=== PATIENT | female | born 1995 | race Caucasian/White ===

== ENCOUNTER 2017-09-26 15:00 | Emergency (ER) | payer OTHER ==
[2017-09-26 15:50] LABS: ADD MAN DIFF? NO
[2017-09-26 15:55] LABS: WHITE BLOOD COUNT 14.5 10^3/ul (4.8-10.8)
[2017-09-26 15:55] LABS: BASOPHIL # 0.1 10^3/ul (0.0-0.1); BASOPHILS % 0.3 % (0.0-2.0); EOSINOPHILS # 0.1 10^3/ul (0.0-0.5); EOSINOPHILS % 0.5 % (0.0-7.0); HEMATOCRIT 41.7 % (37.0-47.0); HEMOGLOBIN 14.1 g/dl (12.0-16.0); LYMPHOCYTES # 4.2 10^3/ul (0.8-2.9); LYMPHOCYTES % 29.3 % (15.0-51.0); MEAN CORPUSCULAR HGB CONC 33.8 g/dl (32.0-37.0); MEAN CORPUSCULAR VOLUME 85.8 fl (82.0-101.0); MEAN PLATELET VOLUME 12.2 fl (7.4-10.4); MONOCYTE # 0.7 10^3/ul (0.3-0.9); MONOCYTES % 4.8 % (0.0-11.0); NEUTROPHIL # 9.3 10^3/ul (1.6-7.5); NEUTROPHILS % 64.6 % (39.0-77.0); PLATELET COUNT 218 10^3/UL (140-415); RED BLOOD COUNT 4.86 10^6/ul (4.20-5.40); RED CELL DISTRIBUTION WIDTH 13.3 % (11.5-14.5)
[2017-09-26 16:06] LABS: ADD UMIC YES; UR ASCORBIC ACID NEGATIVE (NEGATIVE); UR BACTERIA FEW /HPF (NONE SEEN); UR BILIRUBIN (Dip) NEGATIVE (NEGATIVE); UR BLOOD (Dip) 3+ mg/dL (NEGATIVE); UR CLARITY SLIGHTLY CLOUDY (CLEAR); UR COLOR YELLOW (YELLOW); UR GLUCOSE (Dip) NEGATIVE (NEGATIVE); UR KETONES (Dip) TRACE mg/dL (NEGATIVE); UR LEUKOCYTE ESTERASE (Dip) TRACE Leu/ul (NEGATIVE); UR MUCUS FEW /HPF (NONE SEEN); UR NITRITE (Dip) NEGATIVE (NEGATIVE); UR RBC 1 /HPF (0-5); UR SPECIFIC GRAVITY (Dip) 1.019 (1.003-1.030); UR SQUAMOUS EPITHELIAL CELL FEW /HPF (FEW); UR TOTAL PROTEIN (Dip) NEGATIVE (NEGATIVE); UR UROBILINOGEN (Dip) NEGATIVE (NEGATIVE); UR WBC 4 /HPF (0-5)
== END 2017-09-26 17:11 | disposition home or self-care (01) ==
LOC: FTE 15:00
DX: O20.9 Hemorrhage in early pregnancy, unspecified (principal); O99.511 Diseases of the respiratory system complicating pregnancy, first trimester; J45.909 Unspecified asthma, uncomplicated; Z3A.01 Less than 8 weeks gestation of pregnancy
CPT/HCPCS: 36415; 76801; 76817; 81001; 84702; 85025; 86900; 86901; 99284-25

== ENCOUNTER 2017-09-30 09:59 | Emergency (ER) | payer OTHER ==
[2017-09-30] MEDS ORDERED: LIDOCAINE/MYLANTA 40 ML BTL PO (10:21)
[2017-09-30] MEDS ORDERED: ONDANSETRON (ODT) 4 MG TAB ODT (10:21)
[2017-09-30] MEDS ORDERED: BELLADONNA/PHENOBARBITAL TAB PO (10:21)
[2017-09-30] MEDS ORDERED: MECLIZINE 12.5 MG TAB PO (10:30)
[2017-09-30 10:59] LABS: ADD UMIC YES; UR ASCORBIC ACID NEGATIVE (NEGATIVE); UR BILIRUBIN (Dip) NEGATIVE (NEGATIVE); UR BLOOD (Dip) 2+ mg/dL (NEGATIVE); UR CLARITY SLIGHTLY CLOUDY (CLEAR); UR COLOR YELLOW (YELLOW); UR GLUCOSE (Dip) NEGATIVE (NEGATIVE); UR KETONES (Dip) NEGATIVE (NEGATIVE); UR LEUKOCYTE ESTERASE (Dip) 1+ Leu/ul (NEGATIVE); UR NITRITE (Dip) NEGATIVE (NEGATIVE); UR RBC 1 /HPF (0-5); UR SPECIFIC GRAVITY (Dip) 1.016 (1.003-1.030); UR SQUAMOUS EPITHELIAL CELL FEW /HPF (FEW); UR TOTAL PROTEIN (Dip) NEGATIVE (NEGATIVE); UR UROBILINOGEN (Dip) NEGATIVE (NEGATIVE); UR WBC 5 /HPF (0-5)
== END 2017-09-30 11:56 | disposition home or self-care (01) ==
LOC: FTE 09:59
DX: O23.41 Unspecified infection of urinary tract in pregnancy, first trimester (principal); O20.9 Hemorrhage in early pregnancy, unspecified; O99.511 Diseases of the respiratory system complicating pregnancy, first trimester; J45.909 Unspecified asthma, uncomplicated; Z3A.01 Less than 8 weeks gestation of pregnancy
CPT/HCPCS: 81001; 84702; 99283

== ENCOUNTER 2017-10-06 08:32 | Emergency (ER) | payer OTHER ==
[2017-10-06 09:17] LABS: ADD MAN DIFF? NO
[2017-10-06 09:23] LABS: WHITE BLOOD COUNT 12.8 10^3/ul (4.8-10.8)
[2017-10-06 09:23] LABS: BASOPHIL # 0.1 10^3/ul (0.0-0.1); BASOPHILS % 0.4 % (0.0-2.0); EOSINOPHILS # 0.1 10^3/ul (0.0-0.5); EOSINOPHILS % 0.6 % (0.0-7.0); HEMATOCRIT 41.1 % (37.0-47.0); HEMOGLOBIN 14.1 g/dl (12.0-16.0); LYMPHOCYTES # 3.4 10^3/ul (0.8-2.9); LYMPHOCYTES % 26.6 % (15.0-51.0); MEAN CORPUSCULAR HEMOGLOBIN 28.7 pg (29.0-33.0); MEAN CORPUSCULAR HGB CONC 34.3 g/dl (32.0-37.0); MEAN CORPUSCULAR VOLUME 83.7 fl (82.0-101.0); MEAN PLATELET VOLUME 11.8 fl (7.4-10.4); MONOCYTE # 0.6 10^3/ul (0.3-0.9); MONOCYTES % 4.6 % (0.0-11.0); NEUTROPHIL # 8.6 10^3/ul (1.6-7.5); NEUTROPHILS % 67.3 % (39.0-77.0); PLATELET COUNT 215 10^3/UL (140-415); RED BLOOD COUNT 4.91 10^6/ul (4.20-5.40); RED CELL DISTRIBUTION WIDTH 13.2 % (11.5-14.5)
[2017-10-06 09:26] LABS: ADD UMIC YES; UR ASCORBIC ACID NEGATIVE (NEGATIVE); UR BACTERIA FEW /HPF (NONE SEEN); UR BILIRUBIN (Dip) NEGATIVE (NEGATIVE); UR BLOOD (Dip) 3+ mg/dL (NEGATIVE); UR CLARITY SLIGHTLY CLOUDY (CLEAR); UR COLOR YELLOW (YELLOW); UR GLUCOSE (Dip) NEGATIVE (NEGATIVE); UR KETONES (Dip) NEGATIVE (NEGATIVE); UR LEUKOCYTE ESTERASE (Dip) NEGATIVE Leu/ul (NEGATIVE); UR NITRITE (Dip) NEGATIVE (NEGATIVE); UR RBC > 182 /HPF (0-5); UR SPECIFIC GRAVITY (Dip) 1.011 (1.003-1.030); UR SQUAMOUS EPITHELIAL CELL FEW /HPF (FEW); UR TOTAL PROTEIN (Dip) NEGATIVE (NEGATIVE); UR UROBILINOGEN (Dip) NEGATIVE (NEGATIVE); UR WBC 21 /HPF (0-5)
== END 2017-10-06 11:04 | disposition home or self-care (01) ==
LOC: FTE 08:32
DX: O46.8X1 Other antepartum hemorrhage, first trimester (principal); O99.511 Diseases of the respiratory system complicating pregnancy, first trimester; J45.909 Unspecified asthma, uncomplicated; R10.2 Pelvic and perineal pain; Z3A.01 Less than 8 weeks gestation of pregnancy
CPT/HCPCS: 36415; 76801; 81001; 84702; 85025; 86900; 86901; 87086; 99284-25

== ENCOUNTER 2018-04-12 18:24 | Outpatient (CLI) | payer OTHER ==
[2018-04-12 20:06] LABS: ADD MAN DIFF? NO
[2018-04-12 20:08] LABS: BASOPHILS % 0.1 % (0.0-2.0); EOSINOPHILS # 0.1 10^3/ul (0.0-0.5); EOSINOPHILS % 0.8 % (0.0-7.0); HEMATOCRIT 34.9 % (37.0-47.0); HEMOGLOBIN 11.6 g/dl (12.0-16.0); LYMPHOCYTES % 25.1 % (15.0-51.0); MEAN CORPUSCULAR HEMOGLOBIN 28.6 pg (29.0-33.0); MEAN CORPUSCULAR HGB CONC 33.2 g/dl (32.0-37.0); MEAN PLATELET VOLUME 12.7 fl (7.4-10.4); MONOCYTE # 0.8 10^3/ul (0.3-0.9); MONOCYTES % 6.7 % (0.0-11.0); PLATELET COUNT 196 10^3/UL (140-415); RED BLOOD COUNT 4.06 10^6/ul (4.20-5.40); RED CELL DISTRIBUTION WIDTH 12.7 % (11.5-14.5)
[2018-04-12 20:08] LABS: WHITE BLOOD COUNT 11.9 10^3/ul (4.8-10.8)
[2018-04-12 20:27] LABS: ALANINE AMINOTRANSFERASE 25 IU/L (13-69); ALBUMIN 3.4 g/dl (3.3-4.9); ALBUMIN/GLOBULIN RATIO 1.21; ALKALINE PHOSPHATASE 188 IU/L (42-121); ANION GAP 9 (5-13); ASPARTATE AMINO TRANSFERASE 18 IU/L (15-46); BILIRUBIN,INDIRECT 0.3 mg/dl (0-1.1); BILIRUBIN,TOTAL 0.3 mg/dl (0.2-1.3); BLOOD UREA NITROGEN 6 mg/dl (7-20); CALCIUM 9.2 mg/dl (8.4-10.2); CARBON DIOXIDE 23 mmol/L (21-31); CHLORIDE 107 mmol/L (97-110); CREATININE 0.34 mg/dl (0.44-1.00); Estimated GFR > 60 mL/min (>60); GLUCOSE 84 mg/dl (70-220); POTASSIUM 3.9 mmol/L (3.5-5.1); SODIUM 139 mmol/L (135-144); TOTAL PROTEIN 6.2 g/dl (6.1-8.1); URIC ACID 2.7 mg/dl (3.1-7.9)
[2018-04-12 20:29] LABS: INR 0.93; PROTIME 12.6 Sec (11.9-14.9)
[2018-04-12 20:30] LABS: PARTIAL THROMBOPLASTIN TIME 26.6 Sec (23.0-35.0)
[2018-04-12 20:38] LABS: ADD UMIC NO; UR ASCORBIC ACID NEGATIVE (NEGATIVE); UR BILIRUBIN (Dip) NEGATIVE (NEGATIVE); UR BLOOD (Dip) NEGATIVE (NEGATIVE); UR CLARITY CLEAR (CLEAR); UR COLOR STRAW (YELLOW); UR GLUCOSE (Dip) NEGATIVE (NEGATIVE); UR KETONES (Dip) NEGATIVE (NEGATIVE); UR LEUKOCYTE ESTERASE (Dip) NEGATIVE Leu/ul (NEGATIVE); UR NITRITE (Dip) NEGATIVE (NEGATIVE); UR SPECIFIC GRAVITY (Dip) 1.006 (1.003-1.030); UR TOTAL PROTEIN (Dip) NEGATIVE (NEGATIVE); UR UROBILINOGEN (Dip) NEGATIVE (NEGATIVE)
[2018-04-12] MEDS: ACETAMINOPHEN 500 MG TAB PO (20:45)
== END 2018-04-12 21:35 | disposition home or self-care (01) ==
LOC: OBT 18:24 → L-D 18:25 → OBT 21:35
DX: O13.3 Gestational [pregnancy-induced] hypertension without significant proteinuria, third trimester (principal); Z3A.34 34 weeks gestation of pregnancy
CPT/HCPCS: 76818; 80053; 81003; 84560; 85025; 85384; 85610; 85730

== ENCOUNTER 2018-04-24 12:07 | Outpatient (CLI) | payer OTHER ==
[2018-04-24 13:22] LABS: ADD MAN DIFF? NO
[2018-04-24 13:28] LABS: ABNORMAL IP MESSAGE 1; BASOPHILS % 0.2 % (0.0-2.0); EOSINOPHILS # 0.1 10^3/ul (0.0-0.5); EOSINOPHILS % 0.6 % (0.0-7.0); HEMATOCRIT 35.9 % (37.0-47.0); HEMOGLOBIN 11.9 g/dl (12.0-16.0); LYMPHOCYTES # 2.4 10^3/ul (0.8-2.9); LYMPHOCYTES % 24.5 % (15.0-51.0); MEAN CORPUSCULAR HEMOGLOBIN 28.3 pg (29.0-33.0); MEAN CORPUSCULAR HGB CONC 33.1 g/dl (32.0-37.0); MEAN CORPUSCULAR VOLUME 85.5 fl (82.0-101.0); MEAN PLATELET VOLUME 13.3 fl (7.4-10.4); MONOCYTE # 0.7 10^3/ul (0.3-0.9); MONOCYTES % 6.8 % (0.0-11.0); NEUTROPHIL # 6.6 10^3/ul (1.6-7.5); NEUTROPHILS % 67.6 % (39.0-77.0); PLATELET COUNT 178 10^3/UL (140-415); RED CELL DISTRIBUTION WIDTH 13.1 % (11.5-14.5)
[2018-04-24 13:28] LABS: WHITE BLOOD COUNT 9.8 10^3/ul (4.8-10.8)
[2018-04-24 13:31] LABS: INR 0.91; POSITIVE DIFF @See below; PROTIME 12.3 Sec (11.9-14.9)
[2018-04-24 13:32] LABS: PARTIAL THROMBOPLASTIN TIME 28.6 Sec (23.0-35.0)
[2018-04-24 13:44] LABS: ADD UMIC YES; UR ASCORBIC ACID NEGATIVE (NEGATIVE); UR BACTERIA FEW /HPF (NONE SEEN); UR BILIRUBIN (Dip) NEGATIVE (NEGATIVE); UR BLOOD (Dip) NEGATIVE (NEGATIVE); UR CLARITY CLEAR (CLEAR); UR COLOR YELLOW (YELLOW); UR GLUCOSE (Dip) NEGATIVE (NEGATIVE); UR KETONES (Dip) NEGATIVE (NEGATIVE); UR LEUKOCYTE ESTERASE (Dip) 1+ Leu/ul (NEGATIVE); UR NITRITE (Dip) NEGATIVE (NEGATIVE); UR RBC 0 /HPF (0-5); UR SPECIFIC GRAVITY (Dip) 1.008 (1.003-1.030); UR SQUAMOUS EPITHELIAL CELL FEW /HPF (FEW); UR TOTAL PROTEIN (Dip) NEGATIVE (NEGATIVE); UR UROBILINOGEN (Dip) NEGATIVE (NEGATIVE); UR WBC 3 /HPF (0-5)
[2018-04-24 13:47] LABS: ALANINE AMINOTRANSFERASE 16 IU/L (13-69); ALBUMIN 3.5 g/dl (3.3-4.9); ALKALINE PHOSPHATASE 189 IU/L (42-121); ANION GAP 8 (5-13); ASPARTATE AMINO TRANSFERASE 16 IU/L (15-46); BILIRUBIN,INDIRECT 0.5 mg/dl (0-1.1); BILIRUBIN,TOTAL 0.5 mg/dl (0.2-1.3); BLOOD UREA NITROGEN 6 mg/dl (7-20); CALCIUM 9.2 mg/dl (8.4-10.2); CARBON DIOXIDE 23 mmol/L (21-31); CHLORIDE 107 mmol/L (97-110); CREATININE 0.33 mg/dl (0.44-1.00); Estimated GFR > 60 mL/min (>60); GLUCOSE 76 mg/dl (70-220); POTASSIUM 4.1 mmol/L (3.5-5.1); SODIUM 138 mmol/L (135-144); TOTAL PROTEIN 6.4 g/dl (6.1-8.1); URIC ACID 3.7 mg/dl (3.1-7.9)
== END 2018-04-24 14:19 | disposition home or self-care (01) ==
LOC: OBT 12:07 → L-D 12:07 → OBT 14:19
DX: O16.3 Unspecified maternal hypertension, third trimester (principal); Z3A.30 30 weeks gestation of pregnancy
CPT/HCPCS: 76818; 80053; 81001; 84560; 85025; 85610; 85730

== ENCOUNTER 2018-04-26 02:32 | Outpatient (CLI) | payer OTHER ==
[2018-04-26] MEDS: CITRIC ACID/NA CITRATE 30 ML CUP PO (03:15)
[2018-04-26 03:35] LABS: ADD MAN DIFF? NO
[2018-04-26 03:36] LABS: BASOPHILS % 0.3 % (0.0-2.0); EOSINOPHILS # 0.1 10^3/ul (0.0-0.5); EOSINOPHILS % 0.8 % (0.0-7.0); HEMATOCRIT 37.7 % (37.0-47.0); HEMOGLOBIN 12.4 g/dl (12.0-16.0); LYMPHOCYTES # 3.3 10^3/ul (0.8-2.9); LYMPHOCYTES % 27.9 % (15.0-51.0); MEAN CORPUSCULAR HEMOGLOBIN 28.1 pg (29.0-33.0); MEAN CORPUSCULAR HGB CONC 32.9 g/dl (32.0-37.0); MEAN CORPUSCULAR VOLUME 85.5 fl (82.0-101.0); MONOCYTE # 0.7 10^3/ul (0.3-0.9); MONOCYTES % 6.2 % (0.0-11.0); NEUTROPHIL # 7.7 10^3/ul (1.6-7.5); NEUTROPHILS % 64.5 % (39.0-77.0); PLATELET COUNT 180 10^3/UL (140-415); RED BLOOD COUNT 4.41 10^6/ul (4.20-5.40); RED CELL DISTRIBUTION WIDTH 13.2 % (11.5-14.5)
[2018-04-26 03:36] LABS: WHITE BLOOD COUNT 11.9 10^3/ul (4.8-10.8)
[2018-04-26 03:43] LABS: ADD UMIC YES; UR ASCORBIC ACID NEGATIVE (NEGATIVE); UR BILIRUBIN (Dip) NEGATIVE (NEGATIVE); UR BLOOD (Dip) NEGATIVE (NEGATIVE); UR CLARITY CLEAR (CLEAR); UR COLOR YELLOW (YELLOW); UR GLUCOSE (Dip) NEGATIVE (NEGATIVE); UR KETONES (Dip) NEGATIVE (NEGATIVE); UR LEUKOCYTE ESTERASE (Dip) TRACE Leu/ul (NEGATIVE); UR NITRITE (Dip) NEGATIVE (NEGATIVE); UR RBC 0 /HPF (0-5); UR SPECIFIC GRAVITY (Dip) 1.012 (1.003-1.030); UR SQUAMOUS EPITHELIAL CELL FEW /HPF (FEW); UR TOTAL PROTEIN (Dip) 1+ mg/dl (NEGATIVE); UR UROBILINOGEN (Dip) NEGATIVE (NEGATIVE); UR WBC 3 /HPF (0-5)
[2018-04-26 03:59] LABS: ALANINE AMINOTRANSFERASE 17 IU/L (13-69); ALBUMIN 3.4 g/dl (3.3-4.9); ALBUMIN/GLOBULIN RATIO 0.97; ALKALINE PHOSPHATASE 210 IU/L (42-121); AMYLASE 63 U/L (11-123); ANION GAP 10 (5-13); ASPARTATE AMINO TRANSFERASE 16 IU/L (15-46); BILIRUBIN,INDIRECT 0.4 mg/dl (0-1.1); BILIRUBIN,TOTAL 0.4 mg/dl (0.2-1.3); BLOOD UREA NITROGEN 7 mg/dl (7-20); CALCIUM 9.4 mg/dl (8.4-10.2); CARBON DIOXIDE 24 mmol/L (21-31); CHLORIDE 105 mmol/L (97-110); Estimated GFR > 60 mL/min (>60); GLUCOSE 97 mg/dl (70-220); LIPASE 80 U/L (23-300); SODIUM 139 mmol/L (135-144); TOTAL PROTEIN 6.9 g/dl (6.1-8.1); URIC ACID 3.3 mg/dl (3.1-7.9)
== END 2018-04-26 05:30 | disposition home or self-care (01) ==
LOC: OBT 02:32 → L-D 02:32 → OBT 05:30
DX: O26.893 Other specified pregnancy related conditions, third trimester (principal); R07.9 Chest pain, unspecified; R06.02 Shortness of breath; K76.0 Fatty (change of) liver, not elsewhere classified; Z3A.36 36 weeks gestation of pregnancy
CPT/HCPCS: 76705; 76818; 80053; 81001; 82150; 83690; 84560; 85025; 93005

== ENCOUNTER 2018-04-26 05:33 | Emergency (ER) | payer OTHER | END 2018-04-26 07:05 | disposition home or self-care (01) | LOC: FTE 05:33 | DX: O99.89 Other specified diseases and conditions complicating pregnancy, childbirth and the puerperium (principal); O99.513 Diseases of the respiratory system complicating pregnancy, third trimester; R10.13 Epigastric pain; Z3A.36 36 weeks gestation of pregnancy | CPT/HCPCS: 99282; Z7502 ==

== ENCOUNTER 2018-05-08 17:47 | Inpatient (IN) | payer OTHER ==
[2018-05-08] MEDS ORDERED: OXYTOCIN 30 UNITS/LR 500 ML IV ×2 (19:00)
[2018-05-08] MEDS ORDERED: LIDOCAINE 1% (MPF) 30 ML INJ INJ (19:00)
[2018-05-08] MEDS ORDERED: METHYLERGONOVINE 0.2 MG INJ IM (19:00)
[2018-05-08] MEDS ORDERED: BUTORPHANOL 2 MG INJ IV (19:00)
[2018-05-08] MEDS ORDERED: BUTORPHANOL 1 MG INJ IV (19:00)
[2018-05-08] MEDS ORDERED: CARBOPROST 250 MCG INJ IM (19:00)
[2018-05-08] MEDS: LACTATED RINGER'S 1,000 ML IV (19:20)
[2018-05-08 19:28] LABS: ADD MAN DIFF? NO
[2018-05-08 19:31] LABS: WHITE BLOOD COUNT 11.6 10^3/ul (4.8-10.8)
[2018-05-08 19:31] LABS: BASOPHILS % 0.2 % (0.0-2.0); EOSINOPHILS # 0.1 10^3/ul (0.0-0.5); EOSINOPHILS % 0.6 % (0.0-7.0); HEMATOCRIT 35.8 % (37.0-47.0); LYMPHOCYTES # 3.2 10^3/ul (0.8-2.9); LYMPHOCYTES % 27.3 % (15.0-51.0); MEAN CORPUSCULAR HEMOGLOBIN 28.2 pg (29.0-33.0); MEAN CORPUSCULAR HGB CONC 33.5 g/dl (32.0-37.0); MEAN CORPUSCULAR VOLUME 84.2 fl (82.0-101.0); MEAN PLATELET VOLUME 12.9 fl (7.4-10.4); MONOCYTE # 0.6 10^3/ul (0.3-0.9); MONOCYTES % 5.3 % (0.0-11.0); NEUTROPHIL # 7.7 10^3/ul (1.6-7.5); NEUTROPHILS % 66.3 % (39.0-77.0); PLATELET COUNT 175 10^3/UL (140-415); RED BLOOD COUNT 4.25 10^6/ul (4.20-5.40); RED CELL DISTRIBUTION WIDTH 13.2 % (11.5-14.5)
[2018-05-08 19:41] LABS: ADD UMIC YES; UR ASCORBIC ACID NEGATIVE (NEGATIVE); UR BILIRUBIN (Dip) NEGATIVE (NEGATIVE); UR BLOOD (Dip) NEGATIVE (NEGATIVE); UR CLARITY CLEAR (CLEAR); UR COLOR YELLOW (YELLOW); UR GLUCOSE (Dip) NEGATIVE (NEGATIVE); UR KETONES (Dip) NEGATIVE (NEGATIVE); UR LEUKOCYTE ESTERASE (Dip) 1+ Leu/ul (NEGATIVE); UR MUCUS FEW /HPF (NONE SEEN); UR NITRITE (Dip) NEGATIVE (NEGATIVE); UR RBC 2 /HPF (0-5); UR SPECIFIC GRAVITY (Dip) 1.013 (1.003-1.030); UR SQUAMOUS EPITHELIAL CELL FEW /HPF (FEW); UR TOTAL PROTEIN (Dip) 1+ mg/dl (NEGATIVE); UR UROBILINOGEN (Dip) NEGATIVE (NEGATIVE); UR WBC 7 /HPF (0-5)
[2018-05-08 19:51] LABS: ALANINE AMINOTRANSFERASE 18 IU/L (13-69); ALBUMIN 3.3 g/dl (3.3-4.9); ALKALINE PHOSPHATASE 218 IU/L (42-121); ANION GAP 10 (5-13); ASPARTATE AMINO TRANSFERASE 18 IU/L (15-46); BILIRUBIN,INDIRECT 0.5 mg/dl (0-1.1); BILIRUBIN,TOTAL 0.5 mg/dl (0.2-1.3); BLOOD UREA NITROGEN 9 mg/dl (7-20); CARBON DIOXIDE 23 mmol/L (21-31); CHLORIDE 106 mmol/L (97-110); CREATININE 0.37 mg/dl (0.44-1.00); Estimated GFR > 60 mL/min (>60); GLUCOSE 86 mg/dl (70-220); POTASSIUM 4.1 mmol/L (3.5-5.1); SODIUM 139 mmol/L (135-144); TOTAL PROTEIN 6.6 g/dl (6.1-8.1); URIC ACID 3.8 mg/dl (3.1-7.9)
[2018-05-08 20:00] LABS: INR 0.86; PROTIME 11.8 Sec (11.9-14.9); PT RATIO 0.9
[2018-05-08 20:01] LABS: PARTIAL THROMBOPLASTIN TIME 25.4 Sec (23.0-35.0)
[2018-05-08 22:02] LABS: RAPID PLASMA REAGIN NONREACTIVE (NR)
[2018-05-08] MEDS: MINERAL OIL LIGHT 10 ML VIAL TOP (22:30)
[2018-05-08 23:14] LABS: HEPATITIS B SURFACE ANTIGEN NEGATIVE (NEGATIVE)
[2018-05-09] MEDS: LACTATED RINGER'S 1,000 ML IV ×3 (01:22→12:56)
[2018-05-09] MEDS: OXYTOCIN 30 UNITS/LR 500 ML IV ×2 (05:59→22:34)
[2018-05-09] MEDS: DEXTROSE 5%-LR 1,000 ML IV ×2 (10:32→20:03)
[2018-05-09] MEDS ORDERED: NALOXONE (0.4 MG/ML) INJ IV (12:00)
[2018-05-09] MEDS ORDERED: KETOROLAC 30 MG INJ IV (12:00)
[2018-05-09] MEDS ORDERED: HYDROmorphONE 0.5 MG/0.5 ML SYG IV ×2 (12:00)
[2018-05-09] MEDS ORDERED: DIPHENHYDRAMINE 50 MG INJ IV ×2 (12:00→22:00)
[2018-05-09] MEDS ORDERED: FENTAnyl 2MCG/ML-ROPIV 0.2% 100 ML BAG EPI (12:00)
[2018-05-09] MEDS ORDERED: ONDANSETRON 4 MG INJ IV ×2 (12:00→22:00)
[2018-05-09] MEDS ORDERED: ZOLPIDEM 5 MG TAB PO ×2 (12:00→22:00)
[2018-05-09] MEDS ORDERED: LIDOCAINE 1% (MPF) 30 ML INJ (15:44)
[2018-05-09] MEDS ORDERED: MINERAL OIL LIGHT 10 ML VIAL (15:48)
[2018-05-09] MEDS: MINERAL OIL LIGHT 10 ML VIAL TOP (20:03)
[2018-05-09] MEDS: CEFAZOLIN 2 GM/50 ML (PMX) 50 ML IVPB (20:09)
[2018-05-09] MEDS: MISOPROSTOL 200 MCG TAB PR (20:12)
[2018-05-09] MEDS: LACTATED RINGER'S 1,000 ML IV* (21:52)
[2018-05-09] MEDS ORDERED: DEXTROSE 5%-LR 1,000 ML IV (21:52)
[2018-05-09] MEDS ORDERED: MISOPROSTOL 200 MCG TAB PR (22:00)
[2018-05-09] MEDS ORDERED: ACETAMINOPHEN 325 MG TAB PO (22:00)
[2018-05-09] MEDS ORDERED: METHYLERGONOVINE 0.2 MG INJ IM (22:00)
[2018-05-09] MEDS ORDERED: OXYTOCIN 30 UNITS/LR 500 ML IV (22:00)
[2018-05-09] MEDS ORDERED: DIBUCAINE 1% 30 GM OINT TOP (22:00)
[2018-05-09] MEDS ORDERED: WITCH HAZEL/GLYCERIN PAD PR (22:00)
[2018-05-09] MEDS ORDERED: CARBOPROST 250 MCG INJ IM (22:00)
[2018-05-10] MEDS: LANOLIN 7 GM TUBE TOP (00:19)
[2018-05-10] MEDS: IBUPROFEN 600 MG TAB PO ×4 (00:19→18:01)
[2018-05-10] MEDS: BENZOCAINE 20% 56 ML SPRAY TOP (00:19)
[2018-05-10] MEDS: LACTATED RINGER'S 1,000 ML IV* ×3 (03:20→21:35)
[2018-05-10] MEDS: OXYCODONE/ASPIRIN (4.88/325) TAB PO (07:11)
[2018-05-10 08:09] LABS: ADD MAN DIFF? NO
[2018-05-10 08:11] LABS: WHITE BLOOD COUNT 13.8 10^3/ul (4.8-10.8)
[2018-05-10 08:11] LABS: ABNORMAL IP MESSAGE 1; BASOPHILS % 0.2 % (0.0-2.0); EOSINOPHILS # 0.1 10^3/ul (0.0-0.5); EOSINOPHILS % 0.5 % (0.0-7.0); HEMATOCRIT 29.7 % (37.0-47.0); HEMOGLOBIN 10.1 g/dl (12.0-16.0); LYMPHOCYTES # 3.2 10^3/ul (0.8-2.9); LYMPHOCYTES % 22.9 % (15.0-51.0); MEAN CORPUSCULAR HEMOGLOBIN 28.7 pg (29.0-33.0); MEAN CORPUSCULAR VOLUME 84.4 fl (82.0-101.0); MEAN PLATELET VOLUME 13.2 fl (7.4-10.4); MONOCYTE # 0.8 10^3/ul (0.3-0.9); MONOCYTES % 5.9 % (0.0-11.0); NEUTROPHIL # 9.7 10^3/ul (1.6-7.5); NEUTROPHILS % 70.2 % (39.0-77.0); PLATELET COUNT 135 10^3/UL (140-415); RED BLOOD COUNT 3.52 10^6/ul (4.20-5.40); RED CELL DISTRIBUTION WIDTH 13.2 % (11.5-14.5)
[2018-05-10 08:14] LABS: POSITIVE DIFF @See below
[2018-05-10] MEDS: SENNA/DOCUSATE NA (8.6MG/50MG) TAB PO (22:02)
[2018-05-11] MEDS: IBUPROFEN 600 MG TAB PO ×3 (00:02→13:29)
[2018-05-11] MEDS: LACTATED RINGER'S 1,000 ML IV* (04:50)
[2018-05-11] MEDS ORDERED: MEASLES,MUMPS,RUBELLA VACCINE INJ SC* (09:00)
[2018-05-11] MEDS: SENNA/DOCUSATE NA (8.6MG/50MG) TAB PO (11:04)
[2018-05-11] MEDS: DIPHTH/TET/ACEL PERTUSS (ADULT) 0.5 ML VIAL IM* (15:30)
== END 2018-05-11 18:20 | disposition home or self-care (01) | DRG 807 ==
LOC: PP1 05-10 00:06 → L-D 17:47
PROC: 10E0XZZ Delivery of Products of Conception, External Approach (ICD-10-PCS; principal; 2018-05-09)
PROC: 0HQ9XZZ Repair Perineum Skin, External Approach (ICD-10-PCS; 2018-05-09)
PROC: 3E0P7VZ Introduction of Hormone into Female Reproductive, Via Natural or Artificial Opening (ICD-10-PCS; 2018-05-09)
DX: O13.4 Gestational [pregnancy-induced] hypertension without significant proteinuria, complicating childbirth (principal); Z37.0 Single live birth; O69.81X0 Labor and delivery complicated by cord around neck, without compression, not applicable or unspecified; O70.0 First degree perineal laceration during delivery; Z3A.38 38 weeks gestation of pregnancy; Z23 Encounter for immunization
CPT/HCPCS: 62319; 76815; 76818; 80053; 81001; 84560; 85025; 85384; 85610; 85730; 86592; 86850; 86900; 86901; 87340; 88307; 90715; 99464

== ENCOUNTER 2018-07-13 02:40 | Emergency (ER) | payer OTHER ==
[2018-07-13 03:33] LABS: URINE PH (Dip) POC 5.5 (5.0-8.5)
[2018-07-13 03:33] LABS: URINE BLOOD (Dip) POC 2+ (NEGATIVE); URINE GLUCOSE (Dip) POC Negative (NEGATIVE); URINE KETONES (Dip) POC Negative (NEGATIVE); URINE LEUKOCYTE EST (Dip) POC Negative (NEGATIVE); URINE NITRITE (Dip) POC Negative (NEGATIVE); URINE TOTAL PROTEIN POC 1+ (NEGATIVE)
[2018-07-13] MEDS: BELLADONNA/PHENOBARBITAL TAB PO (03:43)
[2018-07-13] MEDS: LIDOCAINE/MYLANTA 40 ML BTL PO (03:43)
== END 2018-07-13 04:07 | disposition home or self-care (01) ==
LOC: FTE 02:40
DX: R10.13 Epigastric pain (principal); J45.909 Unspecified asthma, uncomplicated
CPT/HCPCS: 81003; 81025; 99282

== ENCOUNTER 2018-07-31 16:54 | Emergency (ER) | payer OTHER ==
[2018-07-31] MEDS: LIDOCAINE/MYLANTA 40 ML BTL PO (20:46)
[2018-07-31] MEDS: BELLADONNA/PHENOBARBITAL TAB PO (20:46)
== END 2018-07-31 21:21 | disposition home or self-care (01) ==
LOC: FTE 16:54
DX: R10.13 Epigastric pain (principal); J45.909 Unspecified asthma, uncomplicated
CPT/HCPCS: 81025; 99283

== ENCOUNTER 2018-08-01 02:17 | Emergency (ER) | payer OTHER ==
[2018-08-01] MEDS: BELLADONNA/PHENOBARBITAL TAB PO (04:37)
[2018-08-01] MEDS: LIDOCAINE/MYLANTA 40 ML BTL PO (04:37)
[2018-08-01] MEDS: LIDOCAINE 2% VISC 15 ML CUP PO (04:38)
== END 2018-08-01 05:28 | disposition home or self-care (01) ==
LOC: E/R 02:17
DX: K29.70 Gastritis, unspecified, without bleeding (principal); Z91.040 Latex allergy status
CPT/HCPCS: 99283; Z7502

== ENCOUNTER 2018-08-03 16:52 | Emergency (ER) | payer OTHER ==
[2018-08-03] MEDS: ONDANSETRON 4 MG INJ IV (18:03)
[2018-08-03] MEDS: morphine 4 MG/ML VIAL IV ×2 (18:03→19:55)
[2018-08-03 18:14] LABS: ADD MAN DIFF? NO
[2018-08-03 18:17] LABS: WHITE BLOOD COUNT 17.5 10^3/ul (4.8-10.8)
[2018-08-03 18:17] LABS: BASOPHIL # 0.1 10^3/ul (0.0-0.1); BASOPHILS % 0.3 % (0.0-2.0); EOSINOPHILS % 0.1 % (0.0-7.0); HEMATOCRIT 43.3 % (37.0-47.0); HEMOGLOBIN 14.1 g/dl (12.0-16.0); LYMPHOCYTES # 1.8 10^3/ul (0.8-2.9); MEAN CORPUSCULAR HEMOGLOBIN 26.6 pg (29.0-33.0); MEAN CORPUSCULAR HGB CONC 32.6 g/dl (32.0-37.0); MEAN CORPUSCULAR VOLUME 81.5 fl (82.0-101.0); MEAN PLATELET VOLUME 12.5 fl (7.4-10.4); MONOCYTE # 0.7 10^3/ul (0.3-0.9); MONOCYTES % 4.1 % (0.0-11.0); NEUTROPHIL # 14.9 10^3/ul (1.6-7.5); NEUTROPHILS % 84.9 % (39.0-77.0); PLATELET COUNT 231 10^3/UL (140-415); RED BLOOD COUNT 5.31 10^6/ul (4.20-5.40); RED CELL DISTRIBUTION WIDTH 14.4 % (11.5-14.5)
[2018-08-03 18:35] LABS: ALANINE AMINOTRANSFERASE 263 IU/L (13-69); ALBUMIN 4.8 g/dl (3.3-4.9); ALBUMIN/GLOBULIN RATIO 1.23; ALKALINE PHOSPHATASE 398 IU/L (42-121); ANION GAP 14 (5-13); ASPARTATE AMINO TRANSFERASE 98 IU/L (15-46); BILIRUBIN,TOTAL 2.7 mg/dl (0.2-1.3); BLOOD UREA NITROGEN 12 mg/dl (7-20); CALCIUM 9.9 mg/dl (8.4-10.2); CARBON DIOXIDE 23 mmol/L (21-31); CHLORIDE 105 mmol/L (97-110); CREATININE 0.49 mg/dl (0.44-1.00); Estimated GFR > 60 mL/min (>60); GLUCOSE 147 mg/dl (70-220); POTASSIUM 3.6 mmol/L (3.5-5.1); SODIUM 142 mmol/L (135-144); TOTAL PROTEIN 8.7 g/dl (6.1-8.1)
[2018-08-03 19:43] LABS: LIPASE 37904 U/L (23-300)
[2018-08-03 20:42] LABS: ADD UMIC YES; UR ASCORBIC ACID 40 mg/dL (NEGATIVE); UR BILIRUBIN (Dip) 2+ mg/dL (NEGATIVE); UR BLOOD (Dip) NEGATIVE (NEGATIVE); UR CLARITY SLIGHTLY CLOUDY (CLEAR); UR COLOR AMBER (YELLOW); UR GLUCOSE (Dip) 1+ mg/dL (NEGATIVE); UR KETONES (Dip) 2+ mg/dL (NEGATIVE); UR LEUKOCYTE ESTERASE (Dip) NEGATIVE Leu/ul (NEGATIVE); UR MUCUS MANY /HPF (NONE SEEN); UR NITRITE (Dip) NEGATIVE (NEGATIVE); UR RBC 2 /HPF (0-5); UR SQUAMOUS EPITHELIAL CELL FEW /HPF (FEW); UR TOTAL PROTEIN (Dip) 1+ mg/dl (NEGATIVE); UR UROBILINOGEN (Dip) 2+ mg/dL (NEGATIVE); UR WBC 4 /HPF (0-5)
[2018-08-03] MEDS: SOD CHLORIDE 0.9% 1,000 ML IV (21:00)
== END 2018-08-04 00:38 | disposition short-term general hospital (02) ==
LOC: FTE 08-04 00:38
DX: K85.90 Acute pancreatitis without necrosis or infection, unspecified (principal)
CPT/HCPCS: 36415; 74176; 76705; 80053; 81001; 81025; 83690; 85025; 96374; 96375; 96376; 99285-25